=== PATIENT | female | born 1995 | race African-American/Black ===

== ENCOUNTER 2017-05-07 05:09 | Emergency (ER) | payer OTHER ==
[~2017-05-07] VITALS: Ht 154.9 cm; Wt 66.0 kg
[2017-05-07 05:11] VITALS: BP 120/80
[2017-05-07] MEDS ORDERED: HC1C1.5 TP (05:20)
== END 2017-05-07 06:27 | disposition home or self-care (01) ==
LOC: EMS 05:11
DX: S60.562A Insect bite (nonvenomous) of left hand, initial encounter (principal); S60.561A Insect bite (nonvenomous) of right hand, initial encounter; W57.XXXA Bitten or stung by nonvenomous insect and other nonvenomous arthropods, initial encounter; Y93.89 Activity, other specified; Y92.89 Other specified places as the place of occurrence of the external cause; Y99.9 Unspecified external cause status
CPT/HCPCS: 99282; 99283